=== PATIENT | male | born 1955 | race Caucasian/White ===

== ENCOUNTER 2016-08-08 06:42 | Day surgery (SDC) | payer BC ==
[2016-08-08 07:20] VITALS: BMI 30.1
[2016-08-08] MEDS ORDERED: ePHEDrine SULFATE 50 MG/1 ML AMPULE ONE (07:24)
[2016-08-08] MEDS ORDERED: ATROPINE SULFATE 1 MG/10 ML DISP.SYRIN ONE (07:24)
[2016-08-08] MEDS ORDERED: LIDOCAINE HCL 2% (20ML MULTI-DOSE VIAL) NR ONE (07:24)
[2016-08-08] MEDS ORDERED: PROPOFOL 20 ML ONE ×8 (07:24→07:51)
[2016-08-08] MEDS ORDERED: PHENYLEPHRINE HCL 10 MG/1 ML SINGLE DOSE VIAL ONE (07:24)
[2016-08-08] MEDS ORDERED: GLYCOPYRROLATE 0.2 MG/1 ML VIAL ONE (07:25)
[2016-08-08 08:22] VITALS: TEMP 98.2
[2016-08-08 10:32] VITALS: BP 115/55; PULSE 60
--- NOTE | 2016-08-09 12:27 | PATH ---
Surgical Pathology Report Patient Name: ANA ROSA AMADOR [facility]. Rec. #: [id number] /Age/Gender: 1955 (Age: 60) / M Account: [id number] Location: [facility]-ENDOSCOPY Taken: 08/08/2016 Received: 08/08/2016 Reported: 08/09/2016 Physicians: Aldo Madden M.D. Specimen(s) Received A: POLYP RIGHT COLON B: POLYP RECTOSIGMOID Clinical History Polyps and diverticulosis Diverticulosis, colon polyps Final Diagnosis A. COLON, RIGHT, BIOPSY: COLONIC MUCOSA WITH NO PATHOLOGIC CHANGES. NO ACTIVE COLITIS, ARCHITECTURAL DISTORTION, GRANULOMATA, OR DYSPLASIA IDENTIFIED. NO MICROSCOPIC COLITIS IDENTIFIED (NO LYMPHOCYTIC OR COLLAGENOUS COLITIS IDENTIFIED). B. COLON, RECTOSIGMOID, BIOPSY: TUBULAR ADENOMA. Electronically Signed Ben Mcguire M.D. Gross Description A. Received in formalin, labeled "polyp right colon" are 2 garcia, irregular portions of soft tissue measuring 0.2 and 0.4 cm. in greatest dimension. The specimens are submitted in toto in one cassette. B. Received in formalin, labeled "polyp rectosigmoid" are 2 garcia, irregular portions of soft tissue measuring and 0.4 cm. in greatest dimension. The specimens are submitted in toto in one cassette. 08/08/201608/08/2016
== END 2016-08-08 10:15 | disposition home or self-care (01) ==
LOC: JASU-ENDO 06:42
PROVIDERS: ATTEND Internal Medicine Gastroenterology
PROC: 0DBK8ZX Excision of Ascending Colon, Via Natural or Artificial Opening Endoscopic, Diagnostic (ICD-10-PCS; principal; 2016-08-08 07:30)
DX: Z12.11 Encounter for screening for malignant neoplasm of colon (principal); Z86.010 Personal history of colon polyps; K57.30 Diverticulosis of large intestine without perforation or abscess without bleeding; D12.2 Benign neoplasm of ascending colon
CPT/HCPCS: 88305-TC

== ENCOUNTER 2017-06-04 06:54 | Day surgery (SDC) | payer BC | END 2017-06-04 15:30 | disposition home or self-care (01) | LOC: JASU-SURG 06:54 | PROC: 0TF3XZZ Fragmentation in Right Kidney Pelvis, External Approach (ICD-10-PCS; principal; 2017-06-04) | DX: N20.0 Calculus of kidney (principal) ==

== ENCOUNTER 2018-05-16 06:54 | Emergency (ER) | payer BC ==
[2018-05-16 07:18] VITALS: BP 115/63; PULSE 61; TEMP 98; BMI 30.8
--- NOTE | 2018-05-16 08:22 | PDOC ---
History of Present Illness <Jennifer Weiner Tamiko - Last Filed: 05/16/18 09:50> - General History Source: Patient Exam Limitations: Clinical Condition - History of Present Illness Initial Comments: 05/16/18 08:16 Patient with history of hyperlipidemia and renal stone a year ago now status post lithotripsy present with complaint of 2 months history of intermittent right lower quadrant pain which patient described as shocking sensation and pain started to get worse last night which caused him pain to right lower quadrant which resolved after half an hour. Patient reported only mild pain after waking up this morning as pain improves when he went to sleep. Denies nausea, vomiting, diarrhea, constipation, fever, chills. Denies urinary frequency, hematuria or urgency. Denies any other symptoms Timing/Duration: other (2 months) <Kuldip Garcia - Last Filed: 05/16/18 10:08> - General Chief Complaint: Pain, Acute Stated Complaint: PAIN,RT SIDE Time Seen by Provider: 05/16/18 07:39 Past History <Oj Weinereva Morrison - Last Filed: 05/16/18 09:50> - Past Medical History Anemia: No Asthma: No Cancer: No Cardiac Disorders: Yes (PALPITATIONS, HEART MURMUR) CVA: No COPD: No CHF: No Dementia: No Diabetes: No GI Disorders: Yes (DIVERTICULOSIS, COLON ADENOMA) Disorders: No HTN: No Hypercholesterolemia: Yes Liver Disease: Yes (FATTY LIVER) Seizures: No Thyroid Disease: No - Surgical History Orthopedic Surgery: Yes (RT FOOT) - Immunization History Immunization Up to Date: No - Suicide/Smoking/Psychosocial Hx Smoking Status: Yes Smoking History: Never smoked Have you smoked in the past 12 months: No Number of Cigarettes Smoked Daily: 0 If you are a former smoker, when did you quit?: 2006 Information on smoking cessation initiated: No Hx Alcohol Use: No Drug/Substance Use Hx: No Substance Use Type: None Hx Substance Use Treatment: No <Kuldip Garcia - Last Filed: 05/16/18 10:08> - Past Medical History Allergies/Adverse Reactions: Allergies Allergy/AdvReac Type Severity Reaction Status Date / Time No Known Allergies Allergy Verified 06/04/17 10:49 Home Medications: Ambulatory Orders Aspirin Coated [Ecotrin -] 81 mg PO DAILY 08/07/16 Atorvastatin Ca [Lipitor] 10 mg PO DAILY 08/07/16 Psyllium [Metamucil (Sugar-Free) -] 1 tbs PO DAILY 08/07/16 Review of Systems - Review of Systems Able to Perform ROS?: Yes Is the patient limited Romansh proficient: No Constitutional: No: Chills, Fever, Weakness HEENTM: No: Symptoms Reported, See HPI, Eye Pain, Blurred Vision, Tearing, Recent change in vision, Double Vision, Cataracts, Ear Pain, Ocular Prothesis, Ear Discharge, Nose Pain, Nose Congestion, Tinnitus, Nose Bleeding, Hearing Loss , Throat Pain, Throat Swelling, Mouth Pain, Dental Problems, Difficulty Swallowing, Mouth Swelling, Other Respiratory: No: Symptoms reported, See HPI, Cough, Orthopnea, Shortness of Breath, SOB with Exertion, SOB at Rest, Stridor, Wheezing, Productive cough, Hemoptysis, Other Cardiac (ROS): No: Symptoms Reported, See HPI, Chest Pain, Edema, Irregular Heart Rate, Lightheadedness, Palpitations, Syncope, Chest Tightness, Other ABD/GI: Yes: See HPI, Abdominal cramping (right LQ sharp pain). No: Abdominal Distended, Abd. Pain w/ defecation, Constipated, Diarrhea, Difficulty Swallowing , Nausea, Poor Appetite, Poor Fluid Intake, Rectal Bleeding, Vomiting : Yes: Flank Pain (right). No: Burning, Discharge, Frequency, Hematuria, Urgency, Testicular Mass, Testicular Swelling, Lesions, Testicular Pain, Other All Other Systems: Reviewed and Negative <Kuldip Garcia - Last Filed: 05/16/18 10:08> *Physical Exam - Vital Signs Last Vital Signs Temp Pulse Resp BP Pulse Ox 98.0 F 61 16 115/63 96 05/16/18 07:14 05/16/18 07:14 05/16/18 07:14 05/16/18 07:14 05/16/18 07:14 <Jennifer Weiner - Last Filed: 05/16/18 09:50> - Vital Signs Last Vital Signs Temp Pulse Resp BP Pulse Ox 98.0 F 61 16 115/63 96 05/16/18 07:14 05/16/18 07:14 05/16/18 07:14 05/16/18 07:14 05/16/18 07:14 - Physical Exam Comments: 05/16/18 08:21 GENERAL: Well developed, well nourished. Awake and alert. No acute distress. HEENT: Normocephalic, atraumatic. PERRLA, EOMI. No conjunctival pallor. Sclera are non-icteric. Moist mucous membranes. Oropharynx is clear. NECK: Supple. Full ROM. CARDIOVASCULAR: Regular rate and rhythm. No murmurs, rubs, or gallops. Distal pulses are 2+ and symmetric. PULMONARY: No evidence of respiratory distress. Lungs clear to auscultation bilaterally. No wheezing, rales or rhonchi. ABDOMINAL: Mild tenderness to right flank area. Soft. Non-distended. No rebound or guarding. No organomegaly. Normoactive bowel sounds. MUSCULOSKELETAL Normal range of motion at all joints. SKIN: Warm and dry. Normal capillary refill. No rashes. No cyanosis NEUROLOGICAL: Alert, awake, appropriate. Gait is normal without ataxia. PSYCHIATRIC: Cooperative. Good eye contact. Appropriate mood General Appearance: Yes: Nourished, Appropriately Dressed. No: Apparent Distress <Kuldip Garcia - Last Filed: 05/16/18 10:08> ED Treatment Course - LABORATORY CBC & Chemistry Diagram: 05/16/18 08:11 05/16/18 08:11 - ADDITIONAL ORDERS Additional order review: Laboratory Results 05/16/18 05/16/18 08:15 08:11 Sodium 137 Potassium 4.2 Chloride 104 Carbon Dioxide 23 Anion Gap 9 BUN 12 Creatinine 0.9 Creat Clearance w eGFR 85.50 Random Glucose 107 H Calcium 8.6 Total Bilirubin 0.9 AST 14 L ALT 20 Alkaline Phosphatase 80 Total Protein 7.2 Albumin 3.8 Urine Color Yellow Urine Appearance Clear Urine pH 5.0 Ur Specific Jackson 1.009 L Urine Protein Negative Urine Glucose (UA) Negative Urine Ketones Negative Urine Blood Negative Urine Nitrite Negative Urine Bilirubin Negative Urine Urobilinogen 0.2 Ur Leukocyte Esterase Negative 05/16/18 08:11 RBC 4.87 MCV 90.2 MCHC 34.8 RDW 13.2 MPV 7.4 L Neutrophils % 52.0 Lymphocytes % 33.9 Monocytes % 10.2 Eosinophils % 2.9 Basophils % 1.0 <Jennifer Weiner - Last Filed: 05/16/18 09:50> - LABORATORY CBC & Chemistry Diagram: 05/16/18 08:11 05/16/18 08:11 - RADIOLOGY Radiology Studies Ordered: Category Date Time Status SPIRAL- RENAL-STONE CT [CT] Stat CT Scan 05/16/18 08:15 Ordered <RadhaKuldip Aba - Last Filed: 05/16/18 10:08> Medical Decision Making - Medical Decision Making The patient was seen and evaluated in conjunction with midlevel provider under my direct supervision, ancillary studies were reviewed. I agree with the plan as outlined by AKILAH Garcia. HPI, workup/dispo as outlined. VS reviewed, wnl. labs and UA unremarkable CT genevieve neg for calculi/hydro, or abdominal pathology. +left renal cyst noted, incidental, small rt fat containing hernia. f/u outpatient anticipate discharge with PMD followup. 05/16/18 09:43 05/16/18 09:50 <Jennifer Weiner - Last Filed: 05/16/18 09:50> - Medical Decision Making 05/16/18 08:22 Patient with a history of renal stone a year ago and now status post lithotripsy present with complaint of 2 months history of intermittent right lower quadrant pain which has been steady last night and improved overnight. Patient with no reported on nausea, vomiting, fever, diarrhea or constipation. Exam significant for mild right flank tenderness without guarding or rebound otherwise unremarkable exam. CBC, CMP, UA urine culture labs ordered. Spiral CT ordered to rule out kidney stone. Treat based on lab and imaging results 05/16/18 09:12 CBC chemistry and UA labs unremarkable. abd CT still pending. Low suspicion for appendicitis given benign abd exam and unremarkable labs. 05/16/18 10:[address] shows fat containing inguinal hernia and small left renal cyst otherwise with no acute pathology. Patient stable for discharge with general surgery follow-up for hernia which could be the cause of patient intermittent pains <Kuldip Garcia - Last Filed: 05/16/18 10:08> *DC/Admit/Observation/Transfer <Jennifer Weiner - Last Filed: 05/16/18 09:50> - Discharge Dispostion Decision to Admit order: No <Kuldip Garcia - Last Filed: 05/16/18 10:08> Diagnosis at time of Disposition: Right inguinal hernia Abdominal pain Qualifiers: Abdominal location: right lower quadrant Qualified Code(s): R10.31 - Right lower quadrant pain - Discharge Dispostion Disposition: HOME Condition at time of disposition: Stable - Referrals Referrals: Eda Kapoor MD [Primary Care Provider] - Darion Shah MD [Staff Physician] - - Patient Instructions Printed Discharge Instructions: DI for Groin Hernia, Hernias: Causes and Treatment Options Additional Instructions: Your labs was normal. Your CAT scan shows right fat containing inguinal hernia which could be the cause of the pains and needs follow-up. Follow-up with referred general surgery for follow-up management of hernia. Take motrin as needed for pain - Post Discharge Activity
[2018-05-16 08:27] LABS: EOS % 2.9 % (0-4.5); HEMATOCRIT 43.9 % (35.4-49); HEMOGLOBIN 15.3 GM/dL (11.7-16.9); LYMPH % 33.9 % (8-40); MCH 31.4 pg (25.7-33.7); MCHC 34.8 g/dl (32.0-35.9); MEAN CELL VOLUME 90.2 fl (80-96); MEAN PLT VOLUME 7.4 fl (7.5-11.1); MONO % 10.2 % (3.8-10.2); PLATELET COUNT 212 K/MM3 (134-434); RBC 4.87 M/mm3 (4.00-5.60); RDW 13.2 % (11.9-15.9); WHITE BLOOD COUNT 5.6 K/mm3 (4.0-10.0)
[2018-05-16 08:52] LABS: URINE APPEARANCE CLEAR; URINE BILIRUBIN NEGATIVE (NEGATIVE); URINE COLOR YELLOW; URINE GLUCOSE (UA) NEGATIVE (NEGATIVE); URINE KETONE NEGATIVE (NEGATIVE); URINE LEUK ESTERASE NEGATIVE (NEGATIVE); URINE NITRITE NEGATIVE (NEGATIVE); URINE PROTEIN NEGATIVE (NEGATIVE); URINE UROBILINOGEN 0.2 mg/dL (0.2-1.0)
[2018-05-16 09:03] LABS: ALBUMIN 3.8 g/dl (3.4-5.0); ALK PHOS 80 U/L (45-117); BILIRUBIN,TOTAL 0.9 mg/dL (0.2-1); BLOOD UREA NITROGEN 12 mg/dL (7-18); CALCIUM 8.6 mg/dL (8.5-10.1); CHLORIDE 104 mmol/L (98-107); CO2 23 mmol/L (21-32); CREATININE 0.9 mg/dL (0.55-1.3); GLUCOSE,RANDOM 107 mg/dL (74-106); POTASSIUM 4.2 mmol/L (3.5-5.1); SGOT/AST 14 U/L (15-37); SGPT/ALT 20 U/L (13-61); SODIUM 137 mmol/L (136-145); TOT PROT 7.2 g/dl (6.4-8.2)
[2018-05-16 09:09] LABS: ANION GAP 9 MMOL/L (8-16)
== END 2018-05-16 10:36 | disposition home or self-care (01) ==
LOC: JER 06:54
DX: K40.90 Unilateral inguinal hernia, without obstruction or gangrene, not specified as recurrent (principal); Z87.442 Personal history of urinary calculi; E78.00 Pure hypercholesterolemia, unspecified; K76.0 Fatty (change of) liver, not elsewhere classified; Z87.19 Personal history of other diseases of the digestive system
CPT/HCPCS: 36415; 74176-TC; 80053; 81003; 85025; 87086; 99283-25

== ENCOUNTER 2018-10-23 07:28 | Emergency (ER) | payer BC ==
[2018-10-23 07:36] VITALS: BMI 31.5
[2018-10-23] MEDS ORDERED: ASPIRIN 325 MG ENTERIC COATED TABLET (FP) PO ONE (08:07)
[2018-10-23 08:11] LABS: BASO % 0.5 % (0-2.0); EOS % 4.2 % (0-4.5); HEMATOCRIT 41.2 % (35.4-49); HEMOGLOBIN 14.5 GM/dL (11.7-16.9); LYMPH % 35.2 % (8-40); MCH 31.5 pg (25.7-33.7); MCHC 35.1 g/dl (32.0-35.9); MEAN CELL VOLUME 89.7 fl (80-96); MEAN PLT VOLUME 7.6 fl (7.5-11.1); MONO % 10.1 % (3.8-10.2); PLATELET COUNT 195 K/MM3 (134-434); RDW 12.9 % (11.9-15.9); WHITE BLOOD COUNT 5.6 K/mm3 (4.0-10.0)
[2018-10-23] MEDS ORDERED: ASPIRIN 325 MG TABLET ONE (08:25)
[2018-10-23 08:35] LABS: INR 0.95 (0.83-1.09); PROTHROMBIN TIME (PATIENT) 11.2 SEC (9.7-13.0)
[2018-10-23 08:38] LABS: ALBUMIN 3.8 g/dl (3.4-5.0); ALK PHOS 76 U/L (45-117); ANION GAP 8 MMOL/L (8-16); BILIRUBIN,TOTAL 1.1 mg/dL (0.2-1); BLOOD UREA NITROGEN 10.6 mg/dL (7-18); CALCIUM 8.7 mg/dL (8.5-10.1); CHLORIDE 106 mmol/L (98-107); CO2 25 mmol/L (21-32); CREATININE 1.1 mg/dL (0.55-1.3); GLUCOSE,RANDOM 107 mg/dL (74-106); SGOT/AST 15 U/L (15-37); SGPT/ALT 18 U/L (13-61); SODIUM 139 mmol/L (136-145); TOT PROT 6.9 g/dl (6.4-8.2)
--- NOTE | 2018-10-23 09:17 | PDOC ---
Documentation entered by Ana Mcmillan SCRIBE, acting as scribe for Willard Alamo MD. Willard Alamo MD: This documentation has been prepared by the katrinaeHipolito Xhesika, SCRIBE, under my direction and personally reviewed by me in its entirety. I confirm that the documentation accurately reflects all work, treatment, procedures, and medical decision making performed by me. History of Present Illness - General Chief Complaint: Chest Pain Stated Complaint: CHEST PAIN Time Seen by Provider: 10/23/18 07:50 History Source: Patient Exam Limitations: No Limitations - History of Present Illness Initial Comments: 10/23/18 08:09 The patient is a 63 year old male with a significant PMH of hyperlipidemia, enlarged prostate, and previous renal stones who presents to the emergency department for L sided chest pain and L facial pain 1hr ago. The patient describes the pain as intermittent, 3/10, feels like a needle sensation, lasting a couple of seconds before subsiding. The patient denies any symptoms currently. The patient denies any recent travel or long car rides. Patient denies family history of heart disease. The patient denies shortness of breath, headache and dizziness. Denies fever, chills, cough, nausea, vomiting, diarrhea and constipation. Denies dysuria, frequency, urgency and hematuria. Allergies: NKDA Social history: Denies Alcohol use. Denies tobacco use. PCP: Dr. Kapoor Past History - Past Medical History Allergies/Adverse Reactions: Allergies Allergy/AdvReac Type Severity Reaction Status Date / Time No Known Allergies Allergy Verified 10/23/18 07:32 Home Medications: Ambulatory Orders Aspirin Coated [Ecotrin -] 81 mg PO DAILY 08/07/16 Atorvastatin Ca [Lipitor] 10 mg PO DAILY 08/07/16 Psyllium [Metamucil (Sugar-Free) -] 1 tbs PO DAILY 08/07/16 Zinc Gluconate [Zinc] 10 mg PO ASDIR 10/23/18 Anemia: No Asthma: No Cancer: No Cardiac Disorders: Yes (PALPITATIONS, HEART MURMUR) CVA: No COPD: No CHF: No Dementia: No Diabetes: No GI Disorders: Yes (DIVERTICULOSIS, COLON ADENOMA) Disorders: No HTN: No Hypercholesterolemia: Yes Liver Disease: Yes (FATTY LIVER) Seizures: No Thyroid Disease: No - Surgical History Orthopedic Surgery: Yes (RT FOOT) - Immunization History Immunization Up to Date: No - Suicide/Smoking/Psychosocial Hx Smoking Status: Yes Smoking History: Former smoker Have you smoked in the past 12 months: No Number of Cigarettes Smoked Daily: 2,007 If you are a former smoker, when did you quit?: 2006 Information on smoking cessation initiated: Yes Hx Alcohol Use: No Drug/Substance Use Hx: No Substance Use Type: None Hx Substance Use Treatment: No Review of Systems - Review of Systems Able to Perform ROS?: Yes Comments:: 10/23/18 08:21 CONSTITUTIONAL: No fever, no chills, no fatigue EYES: No visual changes ENT: No ear pain, no sore throat CARDIOVASCULAR: (+) L chest pain associated with L face pain. no palpitations RESPIRATORY: No cough, no SOB GI: No abdominal pain, no nausea, no vomiting, no constipation, no diarrhea GENITOURINARY: No dysuria, no frequency, no hematuria MUSKULOSKELETAL: No backpain, no joint pain, no myalgias SKIN: No rash NEURO: No headache *Physical Exam - Vital Signs Last Vital Signs Temp Pulse Resp BP Pulse Ox 97.6 F 66 18 154/77 96 10/23/18 07:32 10/23/18 07:32 10/23/18 07:32 10/23/18 07:32 10/23/18 07:32 - Physical Exam Comments: 10/23/18 08:22 CONSTITUTIONAL: Well-appearing; well-nourished; in no apparent distress HEAD: Normocephalic; atraumatic EYES: PERRL; EOM intact ENMT: External appears normal; normal oropharynx NECK: Supple; non-tender; no cervical lymphadenopathy CARD: Normal S1, S2; no murmurs, rubs, or gallops RESP: Normal chest excursion with respiration; breath sounds clear and equal bilaterally; no wheezes, rhonchi, or rales ABD: Soft, non-distended; non-tender; no palpable organomegaly, no palpable hernias EXT: Normal ROM in all four extremities; non-tender to palpation; distal pulses intact SKIN: Warm, dry, no rash NEURO: No focal neurological deficiencies. Heart Score/ECG Review - History History: Slightly suspicious - Electrocardiogram EKG: Normal - Age Age: 45-65 - Risk Factors Risk Factors Heart Score: Yes Hx Hypercholesterolemia Based on the list above the patient has:: 1-2 risk factors - Troponin Troponin: </= normal limit - Score Heart Score - Total: 2 - ECG Intrepretation Rhythm: Regular Rhythm (Normal sinus rhythm with sinus arrhythmia, J point elevation.) ED Treatment Course - LABORATORY CBC & Chemistry Diagram: 10/23/18 07:59 10/23/18 07:59 - ADDITIONAL ORDERS Additional order review: Laboratory Results 10/23/18 10/23/18 07:59 07:59 PT with INR 11.20 INR 0.95 Sodium 139 Potassium 4.0 Chloride 106 Carbon Dioxide 25 Anion Gap 8 BUN 10.6 Creatinine 1.1 Est GFR (CKD-EPI)AfAm 82.37 Est GFR (CKD-EPI)NonAf 71.07 Random Glucose 107 H Calcium 8.7 Total Bilirubin 1.1 H AST 15 ALT 18 Alkaline Phosphatase 76 Creatine Kinase 118 Troponin I < 0.02 Total Protein 6.9 Albumin 3.8 10/23/18 07:59 RBC 4.60 MCV 89.7 MCHC 35.1 RDW 12.9 MPV 7.6 Neutrophils % 50.0 Lymphocytes % 35.2 Monocytes % 10.1 Eosinophils % 4.2 Basophils % 0.5 - RADIOLOGY Radiology Studies Ordered: Category Date Time Status CHEST X-RAY PORTABLE* [RAD] Stat Radiology 10/23/18 07:50 Completed - Medications Given in the ED: ED Medications Discontinued Medications Generic Name Dose Route Start Last Admin Trade Name Freq PRN Reason Stop Dose Admin Aspirin 325 mg 10/23/18 08:07 10/23/18 08:27 Ecotrin - PO 10/23/18 08:08 325 mg ONCE ONE Administration Medical Decision Making - Medical Decision Making 10/23/18 10:19 Patient is a 63-year-old male with history of hypercholesterolemia and BPH who presents with atypical chest and facial pain that occurred on the morning of arrival. Patient reports the pain is sharp, lasting a second, nonradiating, and not associated with any other symptomatology. In the ER, patient is awake and alert, afebrile, resting comfortably. EKG shows no evidence of acute ischemia or dysrhythmia. Chest x-ray reveals no evidence of cardiomegaly/infiltrate or effusion. Patient's heart score is noted to be 2. Given the atypical nature of the presentation, will obtain 2-D echo, will obtain serial cardiac enzymes and if negative, will discharge with outpatient follow-up. 10/23/18 12:24 Patient reassessed. Patient is resting comfortably and is currently symptom- free. Patient's had no recurrent chest discomfort since being evaluated in the ER. Second set of cardiac enzymes is within normal limit. Echocardiogram reveals no evidence of wall motion abnormalities. I discussed the case with NITROCELLULOSE OPERATOR Everardo Dimas who agrees with the plan of outpatient follow-up in 24 hours for cardiac evaluation as an outpatient. *DC/Admit/Observation/Transfer Diagnosis at time of Disposition: Chest pain Qualifiers: Chest pain type: unspecified Qualified Code(s): R07.9 - Chest pain, unspecified - Discharge Dispostion Disposition: HOME Condition at time of disposition: Stable - Referrals Referrals: Eda Kapoor MD [Primary Care Provider] - - Patient Instructions Printed Discharge Instructions: DI for Atypical Chest Pain - Post Discharge Activity
--- NOTE | 2018-10-23 11:05 | EKG ---
Test Reason : Blood Pressure : / mmHG Vent. Rate : 061 BPM Atrial Rate : 061 BPM P-R Int : 164 ms QRS Dur : 104 ms QT Int : 414 ms P-R-T Axes : 021 -27 022 degrees QTc Int : 416 ms NORMAL SINUS RHYTHM NORMAL ECG WHEN COMPARED WITH ECG OF 28-NOV-2007 09:10, NO SIGNIFICANT CHANGE WAS FOUND Confirmed by JENNIFER ELIZABETH MD ([id number]) on 10/23/2018 11:05:00 AM Referred By: Confirmed By:JENNIFER ELIZABETH MD
--- NOTE | 2018-10-23 11:25 | ECHO ---
Name: ANA ROSA AMADOR Exam:Adult Echocardiogram Study Date: 10/23/2018 09:29 AM Age: 63 yrs Reason For Study: Chest pain Height: 70 in Weight: 220 lb BSA: 2.2 m2 MMode/2D Measurements & Calculations IVSd: 0.96 cm Ao root diam: 2.7 cm LVIDd: 5.4 cm LA dimension: 3.9 cm LVIDs: 3.8 cm LVPWd: 0.90 cm EDV(Teich): 141.9 ml LVOT diam: 2.1 cm ESV(Teich): 61.6 ml Doppler Measurements & Calculations MV E max moreno: 62.2 cm/sec Ao V2 max: 224.0 cm/sec MV A max moreno: 70.1 cm/sec Ao max P.1 mmHg MV E/A: 0.89 Ao V2 mean: 157.4 cm/sec MV dec time: 0.23 sec Ao mean P.2 mmHg Ao V2 VTI: 49.3 cm JOSE JUAN(I,D): 1.3 cm2 JOSE JUAN(V,D): 1.4 cm2 LV V1 max P.5 mmHg MR max moreno: 236.2 cm/sec LV V1 mean P.8 mmHg MR max P.3 mmHg LV V1 max: 93.7 cm/sec LV V1 mean: 62.9 cm/sec LV V1 VTI: 18.8 cm SV(LVOT): 63.1 ml TR max moreno: 202.2 cm/sec TR max P.4 mmHg Med Peak E' Moreno: 7.9 cm/sec Med E/e': 7.9 Lat Peak E' Moreno: 13.4 cm/sec Lat E/e': 4.7 Procedure A two-dimensional transthoracic echocardiogram with color flow and Doppler was performed. The study w as technically difficult with many images being suboptimal in quality. Left Ventricle The left ventricular size, thickness and function are normal. The left ventricular ejection fraction is normal. E/A reversal consistent with but not diagnostic of poor LV compliance. The left ventricular w all motion is normal. Right Ventricle The right ventricle is not well visualized. Atria The left atrium is mildly dilated. The right atrium is mildly dilated. Mitral Valve There is mild mitral valve thickening. There is no mitral valve stenosis. There is mild mitral regurg itation. Tricuspid Valve There is mild tricuspid valve thickening. There is no tricuspid stenosis. There is mild tricuspid regurgitation. Right ventricular systolic pressure is normal. Aortic Valve The aortic valve is not well visualized. There is mild aortic valve thickening. Mild valvular aortic stenosis. No aortic regurgitation is present. Pulmonic Valve The pulmonic valve is not well visualized. Great Vessels The aortic root is normal size. Pericardium/Pleura There is no pericardial effusion. Interpretation Summary The study was technically difficult with many images being suboptimal in quality. The left ventricular size, thickness and function are normal The left ventricular ejection fraction is normal. The left ventricular wall motion is normal. The aortic valve is not well visualized. Mild valvular aortic stenosis. No aortic regurgitation is present. There is mild aortic valve thickening. The left atrium is mildly dilated. The right atrium is mildly dilated. There is mild mitral regurgitation. There is mild tricuspid regurgitation. Right ventricular systolic pressure is normal. E/A reversal consistent with but not diagnostic of poor LV compliance MD Mendel Carranza 10/23/2018 11:24 AM
[2018-10-23 12:37] VITALS: BP 141/82; PULSE 73; TEMP 98
== END 2018-10-23 12:45 | disposition home or self-care (01) ==
LOC: JER 07:28
DX: R07.9 Chest pain, unspecified (principal); E78.00 Pure hypercholesterolemia, unspecified; N40.0 Benign prostatic hyperplasia without lower urinary tract symptoms; Z87.891 Personal history of nicotine dependence; K76.0 Fatty (change of) liver, not elsewhere classified
CPT/HCPCS: 36415; 71045-TC-FY; 80053; 82550; 84484; 85025; 85610; 93005; 93010; 93306-TC; 99284-25

== ENCOUNTER 2021-10-06 04:08 | Day surgery (SDC) | payer BC, OTHER ==
[2021-10-03 09:48] VITALS: BMI 32.7
[2021-10-06 11:54] VITALS: BP 124/81; PULSE 64; RESP 10
[2021-10-06 12:35] VITALS: TEMP 97.3
== END 2021-10-06 12:07 | disposition home or self-care (01) ==
LOC: JASU-ENDO 04:08
PROVIDERS: ATTEND Internal Medicine Gastroenterology
PROC: 0DBK8ZX Excision of Ascending Colon, Via Natural or Artificial Opening Endoscopic, Diagnostic (ICD-10-PCS; 2021-10-06)
PROC: 0DBN8ZX Excision of Sigmoid Colon, Via Natural or Artificial Opening Endoscopic, Diagnostic (ICD-10-PCS; principal; 2021-10-06 11:15)
DX: Z12.11 Encounter for screening for malignant neoplasm of colon (principal); D12.2 Benign neoplasm of ascending colon; D12.5 Benign neoplasm of sigmoid colon; K57.30 Diverticulosis of large intestine without perforation or abscess without bleeding; K64.8 Other hemorrhoids; Z86.010 Personal history of colon polyps
CPT/HCPCS: 88305-TC

== ENCOUNTER 2024-08-18 06:42 | Day surgery (SDC) | payer OTHER, BC ==
[2024-08-12 11:36] VITALS: BMI 32.5
[2024-08-18] MEDS ORDERED: MIDAZOLAM HCL 2 MG/2 ML SINGLE DOSE VIAL ONE (15:06)
[2024-08-18 15:36] VITALS: RESP 16; TEMP 97.3
[2024-08-18 16:21] VITALS: BP 127/70; PULSE 55
== END 2024-08-18 16:40 | disposition home or self-care (01) ==
LOC: JASU-SURG 06:42
PROVIDERS: ATTEND Urology
PROC: 0TF3XZZ Fragmentation in Right Kidney Pelvis, External Approach (ICD-10-PCS; principal; 2024-08-18 16:00)
DX: N20.0 Calculus of kidney (principal)